=== PATIENT | male | born 1990 | race Caucasian/White ===

== ENCOUNTER 2022-06-21 11:53 | Emergency (ER) | payer OTHER ==
[2022-06-21 12:21] VITALS: BP 136/86; PULSE 85; RESP 18; TEMP 98.2; BMI 32.8
[2022-06-21] MEDS ORDERED: KETOROLAC TROMETHAMINE 30 MG/1 ML VIAL IM ONE (13:35)
[2022-06-21] MEDS ORDERED: KETOROLAC TROMETHAMINE 30 MG/1 ML VIAL ONE (13:40)
== END 2022-06-21 14:18 | disposition home or self-care (01) ==
LOC: JER 11:53
PROC: 3E0233Z Introduction of Anti-inflammatory into Muscle, Percutaneous Approach (ICD-10-PCS; principal; 2022-06-21)
DX: M65.142 Other infective (teno)synovitis, left hand (principal)
CPT/HCPCS: 73130-TC-LT-FY; 99284-25